=== PATIENT | male | born 1935 | race Caucasian/White ===

== ENCOUNTER 2016-07-23 10:16 | Day surgery (SDC) | payer MEDICARE, BC ==
[2016-07-17 11:05] VITALS: BMI 24.7
[~2016-07-23 10:16] MED LIST: DEXAMETHASONE SOD PHOSPHATE 10 MG/ML 1 ML VIAL IV ONE; FAMOTIDINE 20 MG/2 ML VIAL IV ONE; HYDROmorphone 1 MG/ML 1 ML SYRINGE IVP PRN; LACTATED RINGERS 1,000 ML IV SCH; ONDANSETRON 4 MG/2 ML VIAL IVP ONE; Pre Op ABX Message 1 EACH MISC MISCELLANE ONE
[2016-07-23 11:07] VITALS: RESP 16; TEMP 97.9
[2016-07-23] MEDS ORDERED: LIDOCAINE 1% 20 ML VIAL (10MG/ML) FOR IV START INTRADERMA ONE (11:08)
[2016-07-23] MEDS ORDERED: MIDAZOLAM 2 MG/2 ML VIAL ONE (12:16)
[2016-07-23] MEDS ORDERED: PROPOFOL 10 MG/ML 20 ML VIAL IV ONE (12:16)
[2016-07-23] MEDS ORDERED: LIDOCAINE 1% INJ 10MG/ML (20 ML MDV) ONE (12:16)
[2016-07-23] MEDS ORDERED: KETAMINE 10 MG/ML 20 ML VIAL ONE (12:16)
[2016-07-23] MEDS ORDERED: LIDOCAINE 1%-EPI 1:100,000 20 ML VIAL SQ ONE ×3 (12:33)
[2016-07-23] MEDS ORDERED: BACITRACIN 500 UNIT/GM OINT 28.4 GM TUBE TOPICAL ONE (12:33)
--- NOTE | 2016-07-23 13:58 | P.OP ---
Date of Procedure: 07/23/16 Preoperative Diagnosis: Two left cheek skin lesions Postoperative Diagnosis: Same Procedure(s) Performed: Excision left mid cheek lesion with complex closure 5.7 cm Excision left posterior cheek skin lesion 3.6 x 4.1 cm Local flap reconstruction left posterior cheek defect with primary defect 3.6 x 4.1 cm and secondary defect for 4.3 x 4.5 cm Implants: Anesthesia: MAC Surgeon: Yobani Heath Estimated Blood Loss (ml): 5 Pathology: other (Two left cheek skin lesions) Condition: stable Disposition: PACU Indications for Procedure: This is an 80-year-old white male with 2 progressively enlarging left cheek skin lesions Operative Findings: Two left cheek skin lesions the larger being more posterior and required local flap reconstruction. Description of Procedure: The patient was brought in the operative suite and placed in a supine position. The patient underwent induction of IV sedation after appropriate monitors were placed by the mac operator. The patient was prepped and draped in usual aseptic fashion. 1% lidocaine with 1-100,000 epinephrine was infused subcutaneously and field block fashion at both sites. The more anterior site had excision of the lesion grossly entirely and this was sent for frozen section. This returned as having negative margins and this lesion was able to be converted into a more of an elliptical defect and then was closed in the deep subcutaneous layer with inverted interrupted 5-0 Vicryl suture and the subcutaneous layer with inverted interrupted 5-0 Vicryl suture and the skin layer closed with running locking 5-0 Prolene suture. This was a complex closure. Bacitracin ointment and a sterile dressing were placed The more posterior lesion was excised in grossly entirely down to the subcutaneous fat layer. This was sent for frozen section with negative margins. This left a defect and in the location enough that that this required a local flap reconstruction. A rhomboid flap which was based posteriorly and therefore was rotated and advanced from inferiorly was then developed in the same plane and rotated and advanced into position. The primary and secondary defects were then closed with inverted interrupted 5-0 Vicryl suture and skin closed with running locking and simple interrupted 5-0 Prolene suture. Bacitracin ointment and a sterile dressing were placed. Note that the skin flap had excellent capillary refill and excellent cosmetic closure. The patient was then allowed to emerge from anesthesia having tolerated procedure well was transferred to postop recovery area in satisfactory condition.
[2016-07-23 15:11] VITALS: BP 150/71; PULSE 66
== END 2016-07-23 15:37 | disposition home or self-care (01) ==
LOC: OR 10:16
PROVIDERS: ATTEND Otolaryngology
DX: C44.329 Squamous cell carcinoma of skin of other parts of face (principal); D04.39 Carcinoma in situ of skin of other parts of face; L57.8 Other skin changes due to chronic exposure to nonionizing radiation; H61.20 Impacted cerumen, unspecified ear; H90.5 Unspecified sensorineural hearing loss
CPT/HCPCS: 88305; 88331; 88332; 11646; 13132; 14040; J2250; J1100; J2405; J2001; J2704

== ENCOUNTER → 2021-12-30 | Outpatient (CLI) | payer MEDICARE, BC ==
--- NOTE | 2021-12-30 17:34 | CT ---
EXAMINATION TYPE: CT abdomen pelvis wo con DATE OF EXAM: 12/30/2021 COMPARISON: None HISTORY: diarrhea. CT DLP: 524.80 mGycm Automated exposure control for dose reduction was used. Images obtained from the diaphragm to the floor the pelvis with no contrast. Lung bases are clear of consolidation. No pleural effusion. Heart size is normal. No pericardial effu seble. Liver spleen and stomach pancreas appear intact. There are clips from cholecystectomy. The bile ducts are not dilated. There is no adrenal mass. Kidneys show normal size and contour. No hydronephrosis. There is 3 mm calculus lower pole right kidney. No retroperitoneal adenopathy. Ureters are not dilate d. Abdominal aorta is atheromatous. Bladder distends smoothly. Prostate measures 5 cm. There is a fat -containing left inguinal hernia. No free fluid in the pelvis. There are sigmoid diverticula. No diverticulitis. There is no mesenteric edema. No ascites or free air. No sign of a bowel obstruction. The terminal ileum appears normal. Ap pendix not seen. No sign thickened appendix. The lumbar vertebrae have normal alignment. No compression fracture. There is mild disc space narrowi ng and spur formation. Sacroiliac joints are intact. Acetabula appear intact. The proximal femurs are intact. 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 No acute abnormality in the abdomen and pelvis. Nonobstructing righ t renal calculus. Colonic diverticulosis without diverticulitis.
== END | disposition home or self-care (01) ==
LOC: RADCTMAIN 16:48
PROVIDERS: ATTEND Family Medicine
DX: N20.0 Calculus of kidney (principal); K57.30 Diverticulosis of large intestine without perforation or abscess without bleeding; I73.9 Peripheral vascular disease, unspecified
CPT/HCPCS: 74176

== ENCOUNTER 2022-06-23 19:05 | Emergency (ER) | payer MEDICARE, BC ==
[2022-06-23 19:11] VITALS: BP 142/76; PULSE 88; TEMP 97.7
--- NOTE | 2022-06-23 19:38 | ED ---
Chest Pain HPI - General Chief Complaint: Chest Pain Stated Complaint: Chest Pain Time Seen by Provider: 06/23/22 19:36 Source: family, RN notes reviewed, old records reviewed Mode of arrival: wheelchair Limitations: no limitations - History of Present Illness Initial Comments: This is a 86-year-old male to the emergency department for evaluation patient Jessi for evaluation of left-sided chest pain chest pain 456 days left-sided chest pain or symptoms movement worse with touch left-sided rib tenderness. Patient did make notices chest pain in his doctor's office today where he had follow-up and was sent to ER for further evaluation management of chest pain. MD Complaint: chest pain -: minutes(s) Onset: during rest, during exertion Pain Location: substernal Pain Radiation: none Severity: moderate Severity scale (1-10): 4 Consistency: constant Improves With: nothing Worsens With: nothing Anginal Symptoms: diaphoresis Other Symptoms: palpitations Treatments Prior to Arrival: none - Related Data Home Medications Medication Instructions Recorded Confirmed No Known Home Medications 07/17/16 06/23/22 Allergies Allergy/AdvReac Type Severity Reaction Status Date / Time No Known Allergies Allergy Verified 06/23/22 20:30 Review of Systems ROS Statement: Those systems with pertinent positive or pertinent negative responses have been documented in the HPI. ROS Other: All systems not noted in ROS Statement are negative. Past Medical History Past Medical History: Cancer Additional Past Medical History / Comment(s): skin cancer History of Any Multi-Drug Resistant Organisms: None Reported Past Surgical History: Adenoidectomy, Appendectomy, Cholecystectomy, Tonsillectomy Past Anesthesia/Blood Transfusion Reactions: No Reported Reaction, Motion Sickness Additional Past Anesthesia/Blood Transfusion Reaction / Comment(s): years ago Past Psychological History: No Psychological Hx Reported Smoking Status: Never smoker Past Alcohol Use History: Rare Past Drug Use History: None Reported - Past Family History Mother Family Medical History: No Reported History General Exam Limitations: no limitations General appearance: alert, in no apparent distress Head exam: Present: atraumatic, normocephalic, normal inspection Eye exam: Present: normal appearance, PERRL, EOMI. Absent: scleral icterus, conjunctival injection, periorbital swelling ENT exam: Present: normal exam, mucous membranes moist Neck exam: Present: normal inspection. Absent: tenderness, meningismus, lymphadenopathy Respiratory exam: Present: normal lung sounds bilaterally. Absent: respiratory distress, wheezes, rales, rhonchi, stridor Cardiovascular Exam: Present: regular rate, normal rhythm, normal heart sounds, other (patient has tenderness to left rib cage). Absent: systolic murmur, diastolic murmur, rubs, gallop, clicks GI/Abdominal exam: Present: soft, normal bowel sounds. Absent: distended, tenderness, guarding, rebound, rigid Extremities exam: Present: normal inspection, full ROM, normal capillary refill. Absent: tenderness, pedal edema, joint swelling, calf tenderness Back exam: Present: normal inspection Neurological exam: Present: alert, oriented X3, CN II-XII intact Psychiatric exam: Present: normal affect, normal mood Skin exam: Present: warm, dry, intact, normal color. Absent: rash Course Vital Signs 06/23/22 06/23/22 19:07 21:56 Temperature 97.7 F Pulse Rate 88 Respiratory 20 18 Rate Blood Pressure 142/76 O2 Sat by Pulse 99 98 Oximetry - Reevaluation(s) Reevaluation #1: 06/23/22 19:51 Attic record is reviewed Reevaluation #2: 06/23/22 19:51 Patient symptoms are improved here in the ER patient informed results and questions answered Reevaluation #3: Patient symptoms improved here in the ER Reevaluation #4: 06/23/22 19:51 Was pt. sent in by a medical professional or institution? @ -yes by PCP when mentioning chest pain during visit Did you speak to anyone other than the patient for history? @ -family at bedside Did you review nursing and triage notes? @ -agree Were old charts reviewed? @ -prior ED visits Differential Diagnosis? @ -no EKG interpreted by me (3pts min.)? @ -no X-rays interpreted by me (1pt min.)? @ -yes CT interpreted by me (1pt min.)? @ -no U/S interpreted by me (1pt. min.)? @ -no What testing was considered but not performed? (CT, X-rays, U/S, labs)? Why? @ -no What meds were considered but not given? Why? @ -no Did you discuss the management of the patient with other professionals? @ -no Did you reconcile home meds? @ -no Was smoking cessation discussed for >3mins.? @ -no Was critical care preformed (if so, how long)? @ -no Were there social determinants of health that impacted care today? How? (Homelessness, low income, unemployed, alcoholism, drug addiction, transportation, low edu. Level, literacy, decrease access to med. care, detention, rehab)? @ -no Was there de-escalation of care discussed even if they declined? (Discuss DNR or withdrawal of care, Hospice)? @ -no What co-morbidities impacted this encounter? (DM, HTN, Smoking, COPD, CAD, Cancer, CVA, Hep., AIDS, mental health diagnosis, sleep apnea, morbid obesity)? @ -no Was patient admitted / discharged? @ -dc Undiagnosed new problem with uncertain prognosis? @ -no Drug Therapy requiring intensive monitoring for toxicity (Heparin, Nitro, Insulin, Cardizem)? @ -no Were any procedures done? @ -no Diagnosis/symptom? @ -cp Acute, or Chronic, or Acute on Chronic? @ -acute Uncomplicated (without systemic symptoms) or Complicated (systemic symptoms)? @ -uncomplicated Side effects of treatment? @ -no Exacerbation, Progression, or Severe Exacerbation] @ -[no] Poses a threat to life or bodily function? @ -[no] Reevaluation #5: 06/23/22 19:51 Differential Chest Pain: Stable Angina, Unstable Angina, STEMI, NSTEMI Aortic Dissection, Pneumothorax, Musculoskeletal, Esophageal Spasm GERD, Cholecystitis, Pancreatitis, Zoster, this is not meant to be an all-inclusive list. Chest Pain MDM - MDM 86 male for nonspecific chest pain here in the ER EKG chest x-ray is negative patient does have tenderness over the left side of his chest left ribs, symptoms for 4-5 days now. Improved with Motrin patient can be discharged home Disposition Clinical Impression: Atypical chest pain Disposition: HOME SELF-CARE Condition: Good Instructions (If sedation given, give patient instructions): Chest Pain (ED), Costochondritis (ED) Is patient prescribed a controlled substance at d/c from ED?: No Referrals: Luca Benitez MD [Primary Care Provider] - 1-2 days Time of Disposition: 21:30
[2022-06-23 19:56] LABS: Basophils % (A) 1 %; Eosinophils # (A) 0.1 k/uL (0-0.7); Eosinophils % (A) 1 %; HCT 34.2 % (39.0-53.0); HGB 10.9 gm/dL (13.0-17.5); Lymphocytes # (A) 1.3 k/uL (1.0-4.8); Lymphocytes % (A) 21 %; MCH 31.7 pg (25.0-35.0); MCV 99.1 fL (80.0-100.0); Macrocytosis Slight; Mean Platelet Volume 8.6; Monocytes # (A) 0.5 k/uL (0-1.0); Monocytes % (A) 8 %; Neutrophils # (A) 4.1 k/uL (1.3-7.7); Neutrophils % (A) 68 %; Platelet Count 169 k/uL (150-450); RBC 3.45 m/uL (4.30-5.90); RDW 15.2 % (11.5-15.5)
[2022-06-23 20:14] LABS: Partial Thromboplastin Time 28.5 sec (22.0-30.0); Prothrombin Time 10.5 sec (9.0-12.0)
[2022-06-23 20:34] LABS: Albumin 4.2 g/dL (3.5-5.0); Calcium 8.9 mg/dL (8.4-10.2); Magnesium 2.2 mg/dL (1.6-2.3); Potassium 4.1 mmol/L (3.5-5.1); Total Bilirubin 0.7 mg/dL (0.2-1.3); Total Protein 10.5 g/dL (6.3-8.2)
--- NOTE | 2022-06-23 21:23 | XR ---
EXAMINATION TYPE: XR chest 1V portable DATE OF EXAM: 06/23/2022 COMPARISON: NONE HISTORY: Chest pain. TECHNIQUE: Single frontal view of the chest is obtained. FINDINGS: There is chronic parenchymal change bilaterally thought present with left basilar linear s carring and/or atelectasis. No pleural effusion or pneumothorax seen bilaterally. The cardiac silhoue tte size is within normal limits. The osseous structures are intact. IMPRESSION: Chronic parenchymal changes with left basilar linear scarring and/or atelectasis.
[2022-06-23] MEDS ORDERED: KETOROLAC 15 MG/ML 1 ML VIAL IVP STA (21:44)
[2022-06-23 21:56] VITALS: RESP 18
== END 2022-06-23 21:56 | disposition home or self-care (01) ==
LOC: EC 19:05
DX: R07.89 Other chest pain (principal)
CPT/HCPCS: 36415; 93005; 80053; 83735; 84484; 85025; 85610; 85730; 71045; 99285; 96374; J1885

== ENCOUNTER → 2023-02-06 | Outpatient (CLI) | payer MEDICARE, BC ==
--- NOTE | 2023-02-09 08:35 | PE ---
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 Images are reviewed on the computer in the coronal, a xial, and sagittal planes. Reconstructed rotating images are created on independent workstation and reviewed on the computer. A localization and attenuation correction CT is performed in conjunction with the PET scan. DLP: 747.41 mGycm SCAN: Initial Blood glucose: 110 mg/dL Average Mediastinum SUV: 2 Average Liver SUV: 2.49 FINDINGS: Head and neck: No suspicious uptake in the right temporal region is evident. There is some mild uptak e adjacent to the anterior left mandible. Correlate for periodontal disease NECK: There may be some mild increased uptake within the left submandibular gland. Mild increased up take may be within the right thyroid gland. THORAX: Mildly heterogenous appearance. Suspicious focal uptake not identified within the thorax. ABDOMEN: Appears to be some contamination external to the right midabdomen. PELVIS: No suspicious focal uptake. There are some scattered uptake within the bowel which can be phy siologic. OSSEOUS STRUCTURES: There is a focus of radiotracer accumulation within the anterior lateral right fo urth upper rib, image 70, SUV 3.01. There is heterogenous scattered areas of increased signal within this sacrum and within the medial iliac wings. Some increased signal may be above the acetabulum. Met astatic disease is not excluded. There is increased signal within the proximal left femoral diaphysis , image 236. Additional uptake is more superior. LOCALIZATION CT: Note is made of coronary artery calcification. There is a left inguinal hernia conta ining a loop of colon. Multiple diverticula are present without acute diverticulitis. COMPARISON: Inguinal hernia appears been interval change. Diverticulosis is present. IMPRESSION: 1. Focal areas of suspicious uptake within anterolateral right fourth rib and left diaphyseal femur. Additional scattered areas of uptake are within the pelvis and sacrum. Findings are suspicious for me tastatic disease. 2. No clear obvious area of uptake to suggest primary neoplasm. There are multiple heterogenous nonsp ecific areas scattered throughout the study discussed above. 3. No suspicious uptake in the right temporal region of the patient's primary location.
== END | disposition home or self-care (01) ==
LOC: RADPETMAIN 13:09
PROVIDERS: ATTEND Radiology Radiation Oncology
DX: C44.329 Squamous cell carcinoma of skin of other parts of face (principal); C77.0 Secondary and unspecified malignant neoplasm of lymph nodes of head, face and neck; C44.320 Squamous cell carcinoma of skin of unspecified parts of face; R93.5 Abnormal findings on diagnostic imaging of other abdominal regions, including retroperitoneum
CPT/HCPCS: 78815; A9552

== ENCOUNTER 2024-02-21 13:01 | Inpatient (IN) | payer MEDICARE, BC ==
--- NOTE | 2024-02-21 13:18 | ED ---
General Adult HPI - General Chief complaint: Syncope Stated complaint: Weakness Time Seen by Provider: 02/21/24 13:06 Source: patient, EMS Mode of arrival: EMS Limitations: no limitations - History of Present Illness Initial comments: 88-year-old male with no reported past medical history who presents the emergency department after syncope versus stroke like activity. Patient has been having a cough and some shortness of breath. He went into an urgent care with his nephew. The nephew states that the patient was doing well upon check- in however when they were in the exam room the patient had an episode where he went unresponsive. He states that his eyes were open however the patient seemed disconnected. His speech did not make sense. EMS was called. Last known well was at noon. upon arrival patient appears to have expressive aphasia. He does not follow commands appropriately. He is extremely hard of hearing. Nephew does arrive to the hospital and states that he does appear more confused with more fluency issues. No history of stroke. Patient does not take any prescribed medications. No weakness in his arms or legs. No other alleviating, precipitating modifying factors - Related Data Home Medications Medication Instructions Recorded Confirmed Cyanocobalamin (Vitamin B-12) 500 mcg PO DAILY@0800 02/21/24 02/21/24 [Vitamin B-12] Ergocalciferol (Vitamin D2) 1,250 mcg PO MO@0800 02/21/24 02/21/24 [Drisdol (50,000 Iu)] Ferrous Sulfate [Feosol] 325 mg PO DAILY@0800 02/21/24 02/21/24 Multivitamins, Thera [Multivitamin 1 tab PO DAILY@0800 02/21/24 02/21/24 (formulary)] Allergies Allergy/AdvReac Type Severity Reaction Status Date / Time No Known Allergies Allergy Verified 02/21/24 15:09 Review of Systems ROS Statement: Those systems with pertinent positive or pertinent negative responses have been documented in the HPI. ROS Other: All systems not noted in ROS Statement are negative. Past Medical History Past Medical History: Cancer Additional Past Medical History / Comment(s): skin cancer History of Any Multi-Drug Resistant Organisms: None Reported Past Surgical History: Adenoidectomy, Appendectomy, Cholecystectomy, To nsillectomy Past Anesthesia/Blood Transfusion Reactions: No Reported Reaction, Motion Sickness Additional Past Anesthesia/Blood Transfusion Reaction / Comment(s): years ago Past Psychological History: No Psychological Hx Reported Smoking Status: Never smoker Past Alcohol Use History: Rare Past Drug Use History: None Reported - Past Family History Mother Family Medical History: No Reported History General Exam Limitations: altered mental status, physical limitation General appearance: alert, in no apparent distress Head exam: Present: atraumatic, normocephalic, normal inspection Eye exam: Present: normal appearance, PERRL, EOMI. Absent: scleral icterus, conjunctival injection, periorbital swelling ENT exam: Present: normal exam, mucous membranes dry Neck exam: Present: normal inspection. Absent: tenderness, meningismus, lymphadenopathy Respiratory exam: Present: normal lung sounds bilaterally. Absent: respiratory distress, wheezes, rales, rhonchi, stridor Cardiovascular Exam: Present: regular rate, normal rhythm, normal heart sounds. Absent: systolic murmur, diastolic murmur, rubs, gallop, clicks GI/Abdominal exam: Present: soft, normal bowel sounds. Absent: distended, tenderness, guarding, rebound, rigid Extremities exam: Present: normal inspection, full ROM, normal capillary refill. Absent: tenderness, pedal edema, joint swelling, calf tenderness Neurological exam: Present: alert, other (Patient has some expressive aphasia upon arrival. There is also some dysarthria) Psychiatric exam: Present: normal affect, normal mood Skin exam: Present: warm, dry, intact, normal color. Absent: rash Course Vital Signs 02/21/24 02/21/24 02/21/24 13:01 15:00 16:00 Temperature 97.3 F L Pulse Rate 64 61 61 Respiratory 18 18 18 Rate Blood Pressure 117/73 123/78 123/68 O2 Sat by Pulse 100 99 99 Oximetry 02/21/24 02/21/24 02/21/24 18:07 19:00 20:00 Temperature Pulse Rate 77 66 77 Respiratory 20 18 20 Rate Blood Pressure 106/82 109/65 112/66 O2 Sat by Pulse 95 97 93 L Oximetry 02/21/24 20:45 Temperature 98.4 F Pulse Rate 69 Respiratory 18 Rate Blood Pressure 110/62 O2 Sat by Pulse 95 Oximetry Medical Decision Making - Medical Decision Making Was pt. sent in by a medical professional or institution (, PA, OCCUPATIONAL THER, urgent care, hospital, or jail...) When possible be specific @ -Patient sent in from urgent care Did you speak to anyone other than the patient for history (EMS, parent, family, police, friend...)? What history was obtained from this source @ -Spoke with the nephew for history Did you review nursing and triage notes (agree or disagree)? Why? @ -I reviewed and agree with nursing and triage notes Were old charts reviewed (outside hosp., previous admission, EMS record, old EKG, old radiological studies, urgent care reports/EKG's, jail records)? Report findings @ -No old charts were reviewed Differential Diagnosis (chest pain, altered mental status, abdominal pain women, abdominal pain men, vaginal bleeding, weakness, fever, dyspnea, syncope, headache, dizziness, GI bleed, back pain, seizure, CVA, palpatations, mental health, musculoskeletal)? @ -Differential CVA Ischemic stroke, hemorrhagic stroke, brain tumor, atypical migraine, Wernicke's encephalopathy, seizure, multiple sclerosis, meningitis, encephalitis, hypoglycemia, Guillain-Snow, electrolytes disturbance, myasthenia gravis.... This is not meant to be an all-inclusive list EKG interpreted by me (3pts min.). @ -Yes and demonstrates sinus rhythm with a rate of 69. [place] interval 139. QRS 118. QTc of 450. No acute ST segment elevations or depressions X-rays interpreted by me (1pt min.). @ -Yes which demonstrates no acute findings CT interpreted by me (1pt min.). @ -Yes which demonstrates no acute findings U/S interpreted by me (1pt. min.). @ -None done What testing was considered but not performed or refused? (CT, X-rays, U/S, l abs)? Why? @ -None What meds were considered but not given or refused? Why? @ -TNKase was considered however I did discuss the risks and benefits with family. Patient family does not want to pursue this medication due to high risk of bleeding or Did you discuss the management of the patient with other professionals (professionals i.e. , PA, OCCUPATIONAL THER, lab, RT, psych nurse, social work lecturer, tumbling and rolling supervisor, teacher, light armored reconnaissance officer, casework supervisor)? Give summary @ -Discussed the case with Dr. Rocha Was smoking cessation discussed for >3mins.? @ -No Was critical care preformed (if so, how long)? @ -Yes, 35 minutes for code stroke activation Were there social determinants of health that impacted care today? How? (Homelessness, low income, unemployed, alcoholism, drug addiction, transportation, low edu. Level, literacy, decrease access to med. care, fci, rehab)? @ -No Was there de-escalation of care discussed even if they declined (Discuss DNR or withdrawal of care, Hospice)? DNR status @ -Yes, family would like the patient to be a DNR What co-morbidities impacted this encounter? (DM, HTN, Smoking, COPD, CAD, Cancer, CVA, ARF, Chemo, Hep., AIDS, mental health diagnosis, sleep apnea, mo rbid obesity)? @ -None Was patient admitted / discharged? Hospital course, mention meds given and r oute, prescriptions, significant lab abnormalities, going to OR and other pertinent info. @ -Upon arrival patient seen and evaluated in bed 26. Thorough history and physical exam was performed. Patient arrives with some expressive aphasia and dysarthria. I did speak with the family about this and they states that this is new for the patient. Code stroke was activated. NIH is 4. Patient does go for CT and CTA. Upon return from CAT scan the patient does have more fluent speech. He is able to answer questions appropriately and follow commands at this time. NIH is now one. I did speak with Dr. Rocha. tnkase risks and benefits are discussed with family who do not want this drug due to high risks of bleeding and . I did recommend admission for further stroke evaluation for which they were agreeable. I spoke with Dr. Chow for admission Undiagnosed new problem with uncertain prognosis? @ -yes Drug Therapy requiring intensive monitoring for toxicity (Heparin, Nitro, Insulin, Cardizem)? @ -No Were any procedures done? @ -No Diagnosis/symptom? @ -Acute encephalopathy, acute expressive aphasia, suspected CVA Acute, or Chronic, or Acute on Chronic? @ -Acute Uncomplicated (without systemic symptoms) or Complicated (systemic symptoms)? @ -Complicated Side effects of treatment? @ -No Exacerbation, Progression, or Severe Exacerbation? @ -No Poses a threat to life or bodily function? How? (Chest pain, [place], [place], pneumonia, PE, COPD, DKA, ARF, appy, cholecystitis, CVA, Diverticulitis, Homicidal, Suicidal, threat to staff... and all critical care pts) @ -Yes as patient presents with strokelike activity - Lab Data Result diagrams: 02/21/24 13:39 02/21/24 13:39 Lab Results 02/21/24 02/21/24 02/21/24 Range/Units 13:37 13:39 13:39 WBC 5.9 (3.8-10.6) k/uL RBC 2.60 L (4.30-5.90) m/uL Hgb 8.8 L (13.0-17.5) gm/dL Hct 25.8 L (39.0-53.0) % MCV 99.2 (80.0-100.0) fL MCH 33.7 (25.0-35.0) pg MCHC 33.9 (31.0-37.0) g/dL RDW 15.3 (11.5-15.5) % Plt Count 182 (150-450) k/uL MPV 8.9 Neutrophils % 73 % Lymphocytes % 12 % Monocytes % 12 % Eosinophils % 1 % Basophils % 0 % Neutrophils # 4.3 (1.3-7.7) k/uL Lymphocytes # 0.7 L (1.0-4.8) k/uL Monocytes # 0.7 (0-1.0) k/uL Eosinophils # 0.1 (0-0.7) k/uL Basophils # 0.0 (0-0.2) k/uL Macrocytosis Slight PT 11.9 (10.0-12.5) sec INR 1.1 (<1.2) APTT 26.6 (22.0-30.0) sec Sodium (137-145) mmol/L Potassium (3.5-5.1) mmol/L Chloride (98-107) mmol/L Carbon Dioxide (22-30) mmol/L Anion Gap mmol/L BUN (9-20) mg/dL Creatinine (0.66-1.25) mg/dL Est GFR (CKD-EPI)AfAm (>60 ml/min/1.73 sqM) Est GFR (CKD-EPI)NonAf (>60 ml/min/1.73 sqM) Glucose (74-99) mg/dL POC Glucose (mg/dL) 153 H (70-110) mg/dL POC Glu Bank Manager ID Nasir Willard [address]imated [address] Glu mg/dL mg/dL Hemoglobin A1c (<=6.0) % Calcium (8.4-10.2) mg/dL Magnesium (1.6-2.3) mg/dL Total Bilirubin (0.2-1.3) mg/dL AST (17-59) U/L ALT (4-49) U/L Alkaline Phosphatase (38-126) U/L Troponin I (0.000-0.034) ng/mL Total Protein (6.3-8.2) g/dL Albumin (3.5-5.0) g/dL Triglycerides (0.00-149.00) mg/dL Cholesterol (0.00-200.00) mg/dL LDL Cholesterol, Calc (0.0-131.0) mg/dL VLDL Cholesterol, Calc (5.00-40.00) mg/dL HDL Cholesterol (40.00-60.00) mg/dL Cholesterol/HDL Ratio Ratio TSH (0.465-4.680) mIU/L Free T4 (0.78-2.19) ng/dL Urine Color Urine Appearance (Clear) Urine pH (5.0-8.0) Ur Specific [place] (1.001-1.035) Urine Protein (Negative) Urine Glucose (UA) (Negative) Urine Ketones (Negative) Urine Blood (Negative) Urine Nitrite (Negative) Urine Bilirubin (Negative) Urine Urobilinogen (<2.0) mg/dL Ur Leukocyte Esterase (Negative) Influenza Type A (PCR) (Not Detectd) Influenza Type B (PCR) (Not Detectd) RSV (PCR) (Not Detectd) SARS-CoV-2 (PCR) (Not Detectd) 02/21/24 02/21/24 02/21/24 Range/Units 13:39 13:39 13:41 WBC (3.8-10.6) k/uL RBC (4.30-5.90) m/uL Hgb (13.0-17.5) gm/dL Hct (39.0-53.0) % MCV (80.0-100.0) fL MCH (25.0-35.0) pg MCHC (31.0-37.0) g/dL RDW (11.5-15.5) % Plt Count (150-450) k/uL MPV Neutrophils % % Lymphocytes % % Monocytes % % Eosinophils % % Basophils % % Neutrophils # (1.3-7.7) k/uL Lymphocytes # (1.0-4.8) k/uL Monocytes # (0-1.0) k/uL Eosinophils # (0-0.7) k/uL Basophils # (0-0.2) k/uL Macrocytosis PT (10.0-12.5) sec INR (<1.2) APTT (22.0-30.0) sec Sodium 134 L (137-145) mmol/L Potassium 4.9 (3.5-5.1) mmol/L Chloride 101 (98-107) mmol/L Carbon Dioxide 22 (22-30) mmol/L Anion Gap 11 mmol/L BUN 25 H (9-20) mg/dL Creatinine 1.18 (0.66-1.25) mg/dL Est GFR (CKD-EPI)AfAm 63 (>60 ml/min/1.73 sqM) Est GFR (CKD-EPI)NonAf 55 (>60 ml/min/1.73 sqM) Glucose 139 H (74-99) mg/dL POC Glucose (mg/dL) (70-110) mg/dL POC Glu Bank Manager ID Estimated Ave Glu mg/dL mg/dL Hemoglobin A1c (<=6.0) % Calcium 8.8 (8.4-10.2) mg/dL Magnesium 2.1 (1.6-2.3) mg/dL Total Bilirubin 1.0 (0.2-1.3) mg/dL AST 33 (17-59) U/L ALT 12 (4-49) U/L Alkaline Phosphatase 61 (38-126) U/L Troponin I <0.012 (0.000-0.034) ng/mL Total Protein 10.5 H (6.3-8.2) g/dL Albumin 4.1 (3.5-5.0) g/dL Triglycerides (0.00-149.00) mg/dL Cholesterol (0.00-200.00) mg/dL LDL Cholesterol, Calc (0.0-131.0) mg/dL VLDL Cholesterol, Calc (5.00-40.00) mg/dL HDL Cholesterol (40.00-60.00) mg/dL Cholesterol/HDL Ratio Ratio TSH (0.465-4.680) mIU/L Free T4 (0.78-2.19) ng/dL Urine Color Urine Appearance (Clear) Urine pH (5.0-8.0) Ur Specific [place] (1.001-1.035) Urine Protein (Negative) Urine Glucose (UA) (Negative) Urine Ketones (Negative) Urine Blood (Negative) Urine Nitrite (Negative) Urine Bilirubin (Negative) Urine Urobilinogen (<2.0) mg/dL Ur Leukocyte Esterase (Negative) Influenza Type A (PCR) Not Detected (Not Detectd) Influenza Type B (PCR) Not Detected (Not Detectd) RSV (PCR) Not Detected (Not Detectd) SARS-CoV-2 (PCR) Not Detected (Not Detectd) 02/21/24 02/22/24 02/22/24 Range/Units 16:28 05:41 05:41 WBC (3.8-10.6) k/uL RBC (4.30-5.90) m/uL Hgb (13.0-17.5) gm/dL Hct (39.0-53.0) % MCV (80.0-100.0) fL MCH (25.0-35.0) pg MCHC (31.0-37.0) g/dL RDW (11.5-15.5) % Plt Count (150-450) k/uL MPV Neutrophils % % Lymphocytes % % Monocytes % % Eosinophils % % Basophils % % Neutrophils # (1.3-7.7) k/uL Lymphocytes # (1.0-4.8) k/uL Monocytes # (0-1.0) k/uL Eosinophils # (0-0.7) k/uL Basophils # (0-0.2) k/uL Macrocytosis PT (10.0-12.5) sec INR (<1.2) APTT (22.0-30.0) sec Sodium (137-145) mmol/L Potassium (3.5-5.1) mmol/L Chloride (98-107) mmol/L Carbon Dioxide (22-30) mmol/L Anion Gap mmol/L BUN (9-20) mg/dL Creatinine (0.66-1.25) mg/dL Est GFR (CKD-EPI)AfAm (>60 ml/min/1.73 sqM) Est GFR (CKD-EPI)NonAf (>60 ml/min/1.73 sqM) Glucose (74-99) mg/dL POC Glucose (mg/dL) (70-110) mg/dL POC Glu Bank Manager ID Estimated Ave Glu mg/dL 131 mg/dL Hemoglobin A1c 6.2 H (<=6.0) % Calcium (8.4-10.2) mg/dL Magnesium (1.6-2.3) mg/dL Total Bilirubin (0.2-1.3) mg/dL AST (17-59) U/L ALT (4-49) U/L Alkaline Phosphatase (38-126) U/L Troponin I (0.000-0.034) ng/mL Total Protein (6.3-8.2) g/dL Albumin (3.5-5.0) g/dL Triglycerides 39.40 (0.00-149.00) mg/dL Cholesterol 68.00 (0.00-200.00) mg/dL LDL Cholesterol, Calc 22.1 (0.0-131.0) mg/dL VLDL Cholesterol, Calc 7.88 (5.00-40.00) mg/dL HDL Cholesterol 38.00 L (40.00-60.00) mg/dL Cholesterol/HDL Ratio 1.79 Ratio TSH (0.465-4.680) mIU/L Free T4 (0.78-2.19) ng/dL Urine Color Light Yellow Urine Appearance Clear (Clear) Urine pH 6.5 (5.0-8.0) Ur Specific [place] 1.049 H (1.001-1.035) Urine Protein Trace H (Negative) Urine Glucose (UA) Negative (Negative) Urine Ketones Negative (Negative) Urine Blood Negative (Negative) Urine Nitrite Negative (Negative) Urine Bilirubin Negative (Negative) Urine Urobilinogen <2.0 (<2.0) mg/dL Ur Leukocyte Esterase Negative (Negative) Influenza Type A (PCR) (Not Detectd) Influenza Type B (PCR) (Not Detectd) RSV (PCR) (Not Detectd) SARS-CoV-2 (PCR) (Not Detectd) 02/22/24 Range/Units 05:41 WBC (3.8-10.6) k/uL RBC (4.30-5.90) m/uL Hgb (13.0-17.5) gm/dL Hct (39.0-53.0) % MCV (80.0-100.0) fL MCH (25.0-35.0) pg MCHC (31.0-37.0) g/dL RDW (11.5-15.5) % Plt Count (150-450) k/uL MPV Neutrophils % % Lymphocytes % % Monocytes % % Eosinophils % % Basophils % % Neutrophils # (1.3-7.7) k/uL Lymphocytes # (1.0-4.8) k/uL Monocytes # (0-1.0) k/uL Eosinophils # (0-0.7) k/uL Basophils # (0-0.2) k/uL Macrocytosis PT (10.0-12.5) sec INR (<1.2) APTT (22.0-30.0) sec Sodium (137-145) mmol/L Potassium (3.5-5.1) mmol/L Chloride (98-107) mmol/L Carbon Dioxide (22-30) mmol/L Anion Gap mmol/L BUN (9-20) mg/dL Creatinine (0.66-1.25) mg/dL Est GFR (CKD-EPI)AfAm (>60 ml/min/1.73 sqM) Est GFR (CKD-EPI)NonAf (>60 ml/min/1.73 sqM) Glucose (74-99) mg/dL POC Glucose (mg/dL) (70-110) mg/dL POC Glu Bank Manager ID Estimated Ave Glu mg/dL mg/dL Hemoglobin A1c (<=6.0) % Calcium (8.4-10.2) mg/dL Magnesium (1.6-2.3) mg/dL Total Bilirubin (0.2-1.3) mg/dL AST (17-59) U/L ALT (4-49) U/L Alkaline Phosphatase (38-126) U/L Troponin I (0.000-0.034) ng/mL Total Protein (6.3-8.2) g/dL Albumin (3.5-5.0) g/dL Triglycerides (0.00-149.00) mg/dL Cholesterol (0.00-200.00) mg/dL LDL Cholesterol, Calc (0.0-131.0) mg/dL VLDL Cholesterol, Calc (5.00-40.00) mg/dL HDL Cholesterol (40.00-60.00) mg/dL Cholesterol/HDL Ratio Ratio TSH 18.500 H (0.465-4.680) mIU/L Free T4 0.87 (0.78-2.19) ng/dL Urine Color Urine Appearance (Clear) Urine pH (5.0-8.0) Ur Specific [place] (1.001-1.035) Urine Protein (Negative) Urine Glucose (UA) (Negative) Urine Ketones (Negative) Urine Blood (Negative) Urine Nitrite (Negative) Urine Bilirubin (Negative) Urine Urobilinogen (<2.0) mg/dL Ur Leukocyte Esterase (Negative) Influenza Type A (PCR) (Not Detectd) Influenza Type B (PCR) (Not Detectd) RSV (PCR) (Not Detectd) SARS-CoV-2 (PCR) (Not Detectd) Disposition Clinical Impression: TIA (transient ischemic attack), Expressive aphasia, Encephalopathy acute Disposition: ADMITTED IP TO THIS [facility] Condition: Stable Is patient prescribed a controlled substance at d/c from ED?: No Time of Disposition: 16:07 Decision to Admit Reason: Admit from EC Decision Date: 02/21/24 Decision Time: 16:07
[2024-02-21 13:39] LABS: Glucose,Whole Blood 153 mg/dL (70-110)
[2024-02-21 13:45] LABS: Basophils % (A) 0 %; Eosinophils # (A) 0.1 k/uL (0-0.7); Eosinophils % (A) 1 %; HCT 25.8 % (39.0-53.0); HGB 8.8 gm/dL (13.0-17.5); Lymphocytes # (A) 0.7 k/uL (1.0-4.8); Lymphocytes % (A) 12 %; MCH 33.7 pg (25.0-35.0); MCHC 33.9 g/dL (31.0-37.0); MCV 99.2 fL (80.0-100.0); Macrocytosis Slight; Mean Platelet Volume 8.9; Monocytes # (A) 0.7 k/uL (0-1.0); Monocytes % (A) 12 %; Neutrophils # (A) 4.3 k/uL (1.3-7.7); Neutrophils % (A) 73 %; Platelet Count 182 k/uL (150-450); RDW 15.3 % (11.5-15.5); WBC 5.9 k/uL (3.8-10.6)
[2024-02-21 14:02] LABS: INR 1.1 (<1.2); Partial Thromboplastin Time 26.6 sec (22.0-30.0); Prothrombin Time 11.9 sec (10.0-12.5)
[2024-02-21 14:05] LABS: ALT 12 U/L (4-49); African American GFR (CKD) 63 (>60 ml/min/1.73 sqM); Albumin 4.1 g/dL (3.5-5.0); Anion Gap 11 mmol/L; Blood Urea Nitrogen 25 mg/dL (9-20); Calcium 8.8 mg/dL (8.4-10.2); Carbon Dioxide 22 mmol/L (22-30); Chloride 101 mmol/L (98-107); Glucose 139 mg/dL (74-99); Non-African American GFR(CKD) 55 (>60 ml/min/1.73 sqM); Sodium 134 mmol/L (137-145)
--- NOTE | 2024-02-21 14:10 | CT ---
EXAMINATION TYPE: CODE STROKE: CT brain wo contr DATE OF EXAM: 02/21/2024 2:00 PM COMPARISON: None. CLINICAL INDICATION: Male, 88 years old with history of Neuro deficit, acute, stroke suspected, code thromb. weakness and confusion TECHNIQUE: Brain: Axial CT images of the brain were obtained with coronal and sagittal reformats created and rev iewed. Contrast used: None. Oral contrast used: None. CT DLP: 1202.6 mGycm, Automated exposure control for dose reduction was used. FINDINGS: Brain: Extra-axial spaces: No abnormal extra-axial fluid collections. Ventricular system: Dilatation in proportion to cerebral atrophy. Cerebral parenchyma: Cerebral atrophy. No acute intraparenchymal hemorrhage or mass effect. The bull -white junction is well differentiated. Scattered hypoattenuating areas are seen within the white mat ter. Cerebellum: Unremarkable. Mass effect: No evidence of midline shift. Intracranial vasculature: Atherosclerotic calcifications of the intracranial vessels. Soft tissues: Normal. Calvarium/osseous structures: No depressed skull fracture. Paranasal sinuses and mastoid air cells: Mild scattered paranasal sinus disease. Visualized orbits: Orbital contents are intact. IMPRESSION: 1. No acute intracranial process. 2. Nonspecific white matter changes, likely secondary to chronic small vessel ischemic disease. [facility], , 02/21/2024 2:08 PM
[2024-02-21 14:12] LABS: Total Protein 10.5 g/dL (6.3-8.2)
[2024-02-21 14:18] LABS: AST 33 U/L (17-59); Alkaline Phosphatase 61 U/L (38-126); Magnesium 2.1 mg/dL (1.6-2.3); Potassium 4.9 mmol/L (3.5-5.1)
--- NOTE | 2024-02-21 14:49 | CT ---
EXAMINATION TYPE: CT angio head neck DATE OF EXAM: 02/21/2024 2:12 PM COMPARISON: . CLINICAL INDICATION: Male, 88 years old with history of Neuro deficit, acute, stroke suspected; PHH, code thromb. weakness and confusion TECHNIQUE: Axially acquired helical CT angiogram of the head and neck was obtained with contrast. Axi al images are supplemented with 3D reconstructions and MIP images which were post-processed at an in dependent workstation. NASCET criteria used. Contrast used:65ml mL of Isovue 370 with IV Contrast, Oral contrast used: None. CT DLP: 451.4 mGycm, Automated exposure control for dose reduction was used. FINDINGS: CTA HEAD: No evidence of acute intracranial hemorrhage, mass effect, or midline shift. The ventricles, sulci, a nd cisterns are unremarkable. Vertebral arteries: The vertebral arteries are patent. Vertebral artery dominance: Codominant Basilar artery: The basilar artery is intact. The basilar artery bifurcation is normal. Internal Carotid arteries: The cervical, petrous, cavernous and supraclinoid segments are normal. MEMO: Patent with no evidence of aneurysm. ACOM: Present without evidence of aneurysm. MCA: Patent with no evidence of aneurysm. FIELD CLERK: origin left, Patent with no evidence of aneurysm. PCOM: origin left hypoplastic right. Dural sinuses: Patent. CTA NECK: Right Carotid System: The common carotid and external carotid arteries are patent. There is less than 25% stenosis at the c arotid bifurcation secondary to calcified/noncalcified plaque. The rest of the internal carotid arter y is patent. Left Carotid System: The common carotid and external carotid arteries are patent. There is less than 25% stenosis at the c arotid bifurcation secondary to calcified/noncalcified plaque. The rest of the internal carotid arter y is patent. Vertebral arteries are patent without evidence hemodynamically significant stenosis. There is a three-vessel aortic arch. The origins of the great vessels are patent. No evidence of hemo dynamically significant stenosis. Paranasal sinus disease with mucosal thickening of the ethmoid air cells, frontal sinuses, maxillary sinuses and sphenoid sinuses. IMPRESSION: 1. No evidence of dissection of the cervical internal carotid arteries or vertebral arteries. 2. No any evidence of significant stenosis at the carotid bifurcations. 3. No evidence of intracranial high-grade stenosis or intracranial aneurysm. 4. Moderate paranasal sinus disease. [facility], , 02/21/2024 2:46 PM
--- NOTE | 2024-02-21 15:26 | XR ---
EXAMINATION TYPE: XR chest 2V DATE OF EXAM: 02/21/2024 3:15 PM COMPARISON: Chest radiographs from 06/23/2022 CLINICAL INDICATION: Male, 88 years old with history of syncope; [facility] TECHNIQUE: XR chest 2V Frontal and lateral views of the chest. FINDINGS: Lungs/Pleura: There is no evidence of pleural effusion, focal consolidation, or pneumothorax. Pulmonary vascularity: Pulmonary vascular congestion. Heart/mediastinum: Cardiomediastinal silhouette is enlarged and stable. Musculoskeletal: No acute osseous pathology. IMPRESSION: Cardiomegaly and mild pulmonary vascular congestion. Correlate with BNP for congestive heart failure. [facility], , 02/21/2024 3:24 PM
[2024-02-21] MEDS ORDERED: DOCUSATE 100 MG CAP PO PRN (16:02)
[2024-02-21] MEDS ORDERED: NALOXONE 0.4 MG/ML 1 ML VIAL IV PRN (16:02)
[2024-02-21] MEDS ORDERED: MELATONIN 3 MG TABLET PO PRN (16:02)
[2024-02-21] MEDS ORDERED: ONDANSETRON 4 MG/2 ML VIAL IVP PRN (16:02)
[2024-02-21] MEDS ORDERED: ACETAMINOPHEN TAB 325 MG TAB PO PRN (16:02)
[2024-02-21] MEDS ORDERED: CALCIUM CARBONATE 500 MG CHEWABLE PO PRN (16:02)
[2024-02-21 16:38] LABS: Appearance,Urine Clear (Clear); Bilirubin,Urine Negative (Negative); Blood,Urine Negative (Negative); Color,Urine Light Yellow; Glucose,Urine (UA) Negative (Negative); Ketones,Urine Negative (Negative); Leukocyte Esterase,Urine Negative (Negative); Nitrite,Urine Negative (Negative); PH, Urine 6.5 (5.0-8.0); Protein,Urine Trace (Negative); Urobilinogen,Urine <2.0 mg/dL (<2.0)
[2024-02-21 16:41] LABS: Specific Gravity,Urine 1.049 (1.001-1.035)
[2024-02-21] MEDS: ASPIRIN 325 MG TAB PO STA (16:43)
[2024-02-21] MEDS: ATORVASTATIN 40 MG TAB PO SCH (16:44)
--- NOTE | 2024-02-21 17:19 | P.HPIM ---
History of Present Illness H&P Date: 02/21/24 88 year old M with PMH of vitamin B12 def, vitamin D def, anemia presents to the ED. History is obtained from the nephew Olvin who is also the medical POA. Patient lives at [facility] which is an assisted living facility. He was complaining of a cough and was taken to urgent care for further evaluation. POA reports patient was sitting for approximately 10 minutes when he was suddenly disoriented. He was confused and couldn't recognize the nephew. Patient couldn't speak, and when he tried he was incoherently mumbling. He was starting around the room unable to follow commands. Symptoms have significantly improved since coming to the ED. In the ED he underwent extensive evaluation. BP 117/73, HR 64, T 97.3F, RR 18, 100% on RA. CBC, Coag panel, CMP significant for RBC 2.6, Hg 8.8, Hct 25.8, Na 134, BUN 25, glu 139. Mag 2.1. Trop < 0.012. UA neg LE or nitrite. COVID, RSV, Flu neg. Brain CT neg for acute process. CTA head no acute process, paranasal sinus disease. CXR cardiomegaly with pulmonary vascular congestion. Patient is admitted for further workup and management. General: No acute distress Derm: warm, dry Head: atraumatic, normocephalic, symmetric Eyes: EOMI, no lid lag, anicteric sclera Mouth: no lip lesion, mucus membranes moist Cardiovascular: S1S2 reg, no murmur Lungs: CTA bilateral, no rhonchi, no rales , no accessory muscle use Ext: no gross muscle atrophy, no edema, no contractures Neuro: No focal neurologic deficits, CN II-XII grossly intact except diminished hearing bilaterally Psych: Alert and oriented Based on my assessment of this patient, this patient meets a high complexity level of care. Confusion, expressive aphasia: Concerns for TIA. Obtain MRI brain, Echo, A1c, Lipid panel. ASA 325 mg PO QD. Lipitor 40 mg PO QD. Neurochecks. Telemetry monitoring. Check TSH, B12, Folate. Neurology consult. PT/OT/ST consulted. 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 Obtain iron studies. 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 Vitamin B12 def: Cyanocobalamin 500 mcg PO QD. Vitamin D def: Vit D2 1250 mcg PO QMo. CODE STATUS: NO CODE DVT Prophylaxis: Heparin SQ GI Prophylaxis: Designated medical POA if patient is not able to make medical decisions for themselves: Olvin, nephew and medical POA I have reviewed the following search engine optimization consultant notes: ED note. I have reviewed the results of the following tests: As above. I have ordered the following tests: As above. I have discussed the care of this patient with the following independent historian: POA and daughter in law. I have independently interpreted the following test below: I have discussed the management of this patient with the following physician: Dr. Vaughan Past Medical History Past Medical History: Cancer Additional Past Medical History / Comment(s): skin cancer History of Any Multi-Drug Resistant Organisms: None Reported Past Surgical History: Adenoidectomy, Appendectomy, Cholecystectomy, Tonsillectomy Past Anesthesia/Blood Transfusion Reactions: No Reported Reaction, Motion Sickness Additional Past Anesthesia/Blood Transfusion Reaction / Comment(s): years ago Past Psychological History: No Psychological Hx Reported Smoking Status: Never smoker Past Alcohol Use History: Rare Past Drug Use History: None Reported - Past Family History Mother Family Medical History: No Reported History Medications and Allergies Home Medications Medication Instructions Recorded Confirmed Type Cyanocobalamin (Vitamin B-12) 500 mcg PO DAILY@0800 02/21/24 02/21/24 History [Vitamin B-12] Ergocalciferol (Vitamin D2) 1,250 mcg PO MO@0800 02/21/24 02/21/24 History [Drisdol (50,000 Iu)] Ferrous Sulfate [Feosol] 325 mg PO DAILY@0800 02/21/24 02/21/24 History Multivitamins, Thera [Multivitamin 1 tab PO DAILY@0800 02/21/24 02/21/24 History (formulary)] Allergies Allergy/AdvReac Type Severity Reaction Status Date / Time No Known Allergies Allergy Verified 02/21/24 15:09 Physical Exam Vitals: Vital Signs Temp Pulse Resp BP Pulse Ox 02/21/24 16:00 61 18 123/68 99 02/21/24 15:00 61 18 123/78 99 02/21/24 13:01 97.3 F L 64 18 117/73 100 Intake and Output 02/21/24 02/21/24 02/21/24 06:59 14:59 22:59 Other: Weight 73.028 kg Results CBC & Chem 7: 02/21/24 13:39 02/21/24 13:39 Labs: Abnormal Lab Results - Last 24 Hours (Table) 02/21/24 02/21/24 02/21/24 Range/Units 13:37 13:39 13:39 RBC 2.60 L (4.30-5.90) m/uL Hgb 8.8 L (13.0-17.5) gm/dL Hct 25.8 L (39.0-53.0) % Lymphocytes # 0.7 L (1.0-4.8) k/uL Sodium 134 L (137-145) mmol/L BUN 25 H (9-20) mg/dL Glucose 139 H (74-99) mg/dL POC Glucose (mg/dL) 153 H (70-110) mg/dL Total Protein 10.5 H (6.3-8.2) g/dL Ur Specific [place] (1.001-1.035) Urine Protein (Negative) 02/21/24 Range/Units 16:28 RBC (4.30-5.90) m/uL Hgb (13.0-17.5) gm/dL Hct (39.0-53.0) % Lymphocytes # (1.0-4.8) k/uL Sodium (137-145) mmol/L BUN (9-20) mg/dL Glucose (74-99) mg/dL POC Glucose (mg/dL) (70-110) mg/dL Total Protein (6.3-8.2) g/dL Ur Specific [place] 1.049 H (1.001-1.035) Urine Protein Trace H (Negative)
[2024-02-21] MEDS: HEPARIN SODIUM,PORCINE 5,000 UNIT/ML 1 ML VIAL SQ SCH (20:21)
--- NOTE | 2024-02-22 06:49 | P.PN ---
Subjective Progress Note Date: 02/22/24 88 year old M with PMH of vitamin B12 def, vitamin D def, anemia presents to the ED. History is obtained from the nephew Olvin who is also the medical POA. Patient lives at [facility] which is an assisted living facility. He was complaining of a cough and was taken to urgent care for further evaluation. POA reports patient was sitting for approximately 10 minutes when he was suddenly disoriented. He was confused and couldn't recognize the nephew. Patient couldn't speak, and when he tried he was incoherently mumbling. He was starting around the room unable to follow commands. Symptoms have significantly improved since coming to the ED. In the ED he underwent extensive evaluation. BP 117/73, HR 64, T 97.3F, RR 18, 100% on RA. CBC, Coag panel, CMP significant for RBC 2.6, Hg 8.8, Hct 25.8, Na 134, BUN 25, glu 139. Mag 2.1. Trop < 0.012. UA neg LE or nitrite. COVID, RSV, Flu neg. Brain CT neg for acute process. CTA head no acute process, paranasal sinus disease. CXR cardiomegaly with pulmonary vascular congestion. Patient is admitted for further workup and management. 02/21 Patient was seen and examined. Patient doing well. Very hard of hearing. General: No acute distress Derm: warm, dry Head: atraumatic, normocephalic, symmetric Eyes: EOMI, no lid lag, anicteric sclera Mouth: no lip lesion, mucus membranes moist Cardiovascular: S1S2 reg, no murmur Lungs: CTA bilateral, no rhonchi, no rales , no accessory muscle use Ext: no gross muscle atrophy, no edema, no contractures Neuro: No focal neurologic deficits, CN II-XII grossly intact except diminished hearing bilaterally Psych: Alert and oriented Based on my assessment of this patient, this patient meets a high complexity level of care. Confusion, expressive aphasia: Concerns for TIA versus CVA. Follow MRI brain, Echo, A1c, Lipid panel. ASA 325 mg PO QD. Lipitor 40 mg PO QD. Neurochecks. Telemetry monitoring. Check TSH, B12, Folate. Obtain Orthostatic vitals. Neurology consult. PT/OT/ST consulted. 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 Obtain iron studies. 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 Vitamin B12 def: Cyanocobalamin 500 mcg PO QD. Vitamin D def: Vit D2 1250 mcg PO QMo. Discharge pending workup. CODE STATUS: NO CODE DVT Prophylaxis: Heparin SQ GI Prophylaxis: Designated medical POA if patient is not able to make medical decisions for themselves: Olvin, nephew and medical POA I have reviewed the following senior recruitment consultant notes: I have reviewed the results of the following tests: I have ordered the following tests: Pending: Echo, MRI brain, A1c, Lipid panel, B12, Folate, TSH, Iron studies. I have discussed the care of this patient with the following independent historian: I have independently interpreted the following test below: I have discussed the management of this patient with the following physician: Objective - Vital Signs Vital signs: Vital Signs Temp 97.4 F L 02/22/24 04:00 Pulse 70 02/22/24 04:00 Resp 15 02/22/24 04:00 BP 98/53 02/22/24 04:00 Pulse Ox 96 02/22/24 04:00 FiO2 Intake & Output 02/21/24 02/21/24 02/22/24 06:59 18:59 06:59 Intake Total 120 Output Total 300 Balance -180 Weight 73.028 kg 73.028 kg Intake: Oral 120 Output: Urine 300 Other: Voiding Method Toilet # Voids 1 - Labs CBC & Chem 7: 02/21/24 13:39 02/21/24 13:39 Labs: Abnormal Lab Results - Last 24 Hours (Table) 02/21/24 02/21/24 02/21/24 Range/Units 13:37 13:39 13:39 RBC 2.60 L (4.30-5.90) m/uL Hgb 8.8 L (13.0-17.5) gm/dL Hct 25.8 L (39.0-53.0) % Lymphocytes # 0.7 L (1.0-4.8) k/uL Sodium 134 L (137-145) mmol/L BUN 25 H (9-20) mg/dL Glucose 139 H (74-99) mg/dL POC Glucose (mg/dL) 153 H (70-110) mg/dL Total Protein 10.5 H (6.3-8.2) g/dL Ur Specific [place] (1.001-1.035) Urine Protein (Negative) 02/21/24 Range/Units 16:28 RBC (4.30-5.90) m/uL Hgb (13.0-17.5) gm/dL Hct (39.0-53.0) % Lymphocytes # (1.0-4.8) k/uL Sodium (137-145) mmol/L BUN (9-20) mg/dL Glucose (74-99) mg/dL POC Glucose (mg/dL) (70-110) mg/dL Total Protein (6.3-8.2) g/dL Ur Specific [place] 1.049 H (1.001-1.035) Urine Protein Trace H (Negative)
[2024-02-22 07:42] LABS: T4, Free (Free Thyroxine) 0.87 ng/dL (0.78-2.19)
[2024-02-22 09:05] LABS: Chol/HDL Ratio 1.79 Ratio; LDL Cholesterol,Calculated 22.1 mg/dL (0.0-131.0); VLDL Calculation 7.88 mg/dL (5.00-40.00)
[2024-02-22 09:24] VITALS: RESP 16
[2024-02-22] MEDS: MULTIVITAMINS, THERA 1 EACH TAB PO SCH (09:25)
[2024-02-22] MEDS: ASPIRIN 325 MG TAB PO SCH (09:25)
[2024-02-22] MEDS: CYANOCOBALAMIN 500 MCG TAB PO SCH (09:25)
[2024-02-22] MEDS: ERGOCALCIFEROL 1,250 MCG (50,000 IU) CAPSULE PO SCH (09:25)
[2024-02-22] MEDS: FERROUS SULFATE 325 MG TAB PO SCH (09:26)
[2024-02-22 11:47] LABS: % Iron Saturation 27.55 (15.00-50.00); Iron 54 UG/DL (65-175); Total Iron Binding Capacity 196 UG/DL (228-460)
--- NOTE | 2024-02-22 14:04 | MR ---
EXAMINATION TYPE: MR brain wo con DATE OF EXAM: 02/22/2024 1:51 PM COMPARISON: 02/21/2024 CLINICAL INDICATION: Male, 88 years old with history of CVA; TECHNIQUE: Multi planar, multi sequence imaging was performed through the brain including: T1, T2, In version recovery, Diffusion weighted imaging, and gradient echo imaging. No gadolinium was given. FINDINGS: Mild cerebral atrophy with proportional dilation of ventricular system. Scattered foci of high T2 s ignal intensity are seen within the periventricular white matter. Midline structures show no abnormal ity. Diffusion-weighted imaging shows no evidence of restricted diffusion. The susceptibility weighte d images do not reveal any evidence for micro-hemorrhage. The bone marrow signal is within normal limits. Paranasal sinuses and mastoid air cells: Moderate scattered paranasal sinus disease. Visualized orbits: Orbital contents are intact. Right superficial parotid gland 22 mm lesion. It extends into the deep parotid gland. This is high T2 low T1 signal. IMPRESSION: 1. No evidence of intracranial mass or acute/subacute infarct. 2. Nonspecific white matter changes, likely secondary to small vessel ischemic disease. 3. Right parotid gland lesion seen dating back to at least 02/06/2023 possibly representing a cyst. Co rrelate with ultrasound. 4. Moderate paranasal sinus disease. [facility], , 02/22/2024 2:02 PM
[2024-02-22 16:40] VITALS: BP 118/69; PULSE 62; TEMP 98.1
--- NOTE | 2024-02-22 16:51 | P.CNNES ---
History of Present Illness Consult date: 02/22/24 Requesting physician: Neil Yuan Reason for Consult: cva r/o History of Present Illness: This is an 88-year-old gentleman with severe hearing loss, who presented emergency department because of confusion and not verbalizing. History is obtained from the patient nephew is at bedside. According to the nephew patient was in his assisted living facility and he was coughing and family was notified that he needs to be evaluated. He was taken to urgent care for further evaluation and there while sitting for approximately 10 minutes recently was confused and according to the nephew he was just gazing off and not verbalizing. He seems that he was placed off per the nephew. And he did not follow commands. The episode lasted possibly about 20 minutes. No jerking of any extremity, no foaming around the mouth, no urinary or bowel incontinence. No history of seizure. Patient does not have any focal deficits. Patient does not have any history of stroke or TIA. 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 Some of the workup during this hospital visit consisted of: Lipid panel is triglyceride 39, cholesterol 68, LDL 22 and HDL is 38 TSH is 18.50 Free T4 is 0.87 Vitamin B12 is 507 Serum folate is 25.90 Hemoglobin A1c is 6.20 I reviewed the rest of the lab workup. CT of the head is reported as no acute intracranial process. I personally reviewed the CT and I agree with the report CT angiography of the head and neck is reported as no evidence of dissection of cervical internal carotid artery or vertebral artery. No any evidence of significant stenosis at the carotid bifurcation. No evidence of intracranial high-grade stenosis or intracranial aneurysm. MRI of the brain is reported as no evidence of intracranial mass or acute/subacute infarct. Nonspecific white matter changes, likely secondary to small vessel ischemic disease. Right parotid gland lesion seen dating back to at least 01/2023 possibly representing a cyst. Correlate with ultrasound. Review of Systems As per HPI. Past Medical History Past Medical History: Cancer Additional Past Medical History / Comment(s): skin cancer History of Any Multi-Drug Resistant Organisms: None Reported Past Surgical History: Adenoidectomy, Appendectomy, Cholecystectomy, Tonsillectomy Past Anesthesia/Blood Transfusion Reactions: No Reported Reaction, Motion Sickness Additional Past Anesthesia/Blood Transfusion Reaction / Comment(s): years ago Past Psychological History: No Psychological Hx Reported Smoking Status: Never smoker Past Alcohol Use History: Rare Past Drug Use History: None Reported - Past Family History Mother Family Medical History: No Reported History Medications and Allergies Home Medications Medication Instructions Recorded Confirmed Type Cyanocobalamin (Vitamin B-12) 500 mcg PO DAILY@0800 02/21/24 02/21/24 History [Vitamin B-12] Ergocalciferol (Vitamin D2) 1,250 mcg PO MO@0800 02/21/24 02/21/24 History [Drisdol (50,000 Iu)] Ferrous Sulfate [Iron (65 MG 325 mg PO DAILY@0800 02/21/24 02/21/24 History Elemental)] Multivitamins, Thera [Multivitamin 1 tab PO DAILY@0800 02/21/24 02/21/24 History (formulary)] Aspirin 81 mg PO DAILY #30 tab 02/22/24 Rx Atorvastatin [Lipitor] 10 mg PO HS #30 tab 02/22/24 Rx Levothyroxine Sodium [Synthroid] 25 mcg PO DAILY@0630 #30 tab 02/22/24 Rx Allergies Allergy/AdvReac Type Severity Reaction Status Date / Time No Known Allergies Allergy Verified 02/21/24 15:09 Physical Examination - Vital Signs Vital Signs: Vital Signs Temp Pulse Pulse Resp BP BP Pulse Ox 02/22/24 11:30 97.8 F 77 16 90/51 97 02/22/24 08:00 98.0 F 64 16 96/55 97 02/22/24 04:00 97.4 F L 70 15 98/53 96 02/22/24 02:00 15 02/21/24 23:50 98.1 F 72 14 111/54 98 02/21/24 21:00 97.1 F L 79 19 121/65 98 02/21/24 20:45 98.4 F 69 18 110/62 95 02/21/24 20:00 77 20 112/66 93 L 02/21/24 19:00 66 18 109/65 97 02/21/24 18:07 77 20 106/82 95 Intake and Output 02/22/24 02/22/24 02/22/24 06:59 14:59 22:59 Intake Total 120 460 Output Total 300 Balance -180 460 Intake: Oral 120 460 Output: Urine 300 Other: Voiding Method Toilet # Voids 1 1 Weight 76 kg General: Sitting in a recliner chair and is not in acute distress. Neuro: Limited because of his cooperation. Patient nephew is at bedside who helps with the history. Patient refused on follow my commands followed some of his nephews command. Patient was upset that he still in the hospital and wants to go back home. He is oriented to self he correctly stated the current month and he stated he is in the hospital. He was following few simple commands to his nephew correctly such as wiggling his toes. Pupils are round about 3 mm and reactive to light. No facial weakness. No dysarthria Hearing is severely decreased bilaterally to hand rub even with hearing aids. Motor the strength is limited in assessment because of his cooperation and he refused but had spontaneous movement of upper extremity. He was crossing his legs and he wiggled his toes bilaterally. Per the nurse he walks it was physical therapy Rest is deferred because of his cooperation Results - Laboratory Findings CBC and BMP: 02/21/24 13:39 02/21/24 13:39 Abnormal Lab Findings: Abnormal Labs 02/21/24 02/21/24 02/21/24 13:37 13:39 13:39 RBC 2.60 L Hgb 8.8 L Hct 25.8 L Lymphocytes # 0.7 L Sodium 134 L BUN 25 H Glucose 139 H POC Glucose (mg/dL) 153 H Hemoglobin A1c Iron TIBC Transferrin Total Protein 10.5 H HDL Cholesterol TSH Ur Specific [place] Urine Protein 02/21/24 02/22/24 02/22/24 16:28 05:41 05:41 RBC Hgb Hct Lymphocytes # Sodium BUN Glucose POC Glucose (mg/dL) Hemoglobin A1c 6.2 H Iron TIBC Transferrin Total Protein HDL Cholesterol 38.00 L TSH Ur Specific [place] 1.049 H Urine Protein Trace H 02/22/24 05:41 RBC Hgb Hct Lymphocytes # Sodium BUN Glucose POC Glucose (mg/dL) Hemoglobin A1c Iron 54 L TIBC 196 L Transferrin 140.0 L Total Protein HDL Cholesterol TSH 18.500 H Ur Specific [place] Urine Protein Assessment and Plan Assessment: This is an 88-year-old gentleman who presents to the emergency department because of episode of confusion, he was dazed off and not following commands or verbalizing while at the urgent care. He was sent from his assisted living facility for further evaluation of cough. Transient episode of confusion, aphasia and eye gazing off: Unsure exact etiology, possible TIA versus cannot rule out seizure. 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 He was started on Lipitor 40 mg daily and can go down to 10mg qhs. 2D echo was ordered and is pending I ordered a routine EEG Continue neuro checks Cardiac monitoring. PT, OT and FLIGHT DECK OFFICER are consulted. Regarding the abnormal thyroid will defer the management to the primary team For the rest of the medical management to primary team Patient refusing to stay in the hospital for further evaluation such as EEG. The nephew was at bedside and stated that will be better for the patient to obtain EEG as an outpatient since he is very reluctant about it. In those terms since the patient is stable we will recommend outpatient EEG but if the patient continues to have any further episode of confusion staring off then recommend patient to come back to the hospital immediately for further evaluation and an EEG. Recommend patient to follow-up with a neurologist as an outpatient within to 3 weeks DVT prophylaxis the patient is on subcu heparin Plan discussed with the patient's nephew is at bedside and the primary team Thank you for the consultation. Dr. Najera will resume neurology service tomorrow if patient remains in the hospital. Time with Patient: Greater than 30
--- NOTE | 2024-02-22 16:56 | P.DS ---
Providers Date of admission: 02/22/24 07:35 Expected date of discharge: 02/22/24 Attending physician: Neil Yuan MD Consults: 02/21/24 16:03 Consult Physician Routine Consulting Provider: Wei Deras Consult Reason/Comments: CVA r/o Do you want consulting provider notified?: Yes Primary care physician: [facility] Course: 88 year old M with PMH of vitamin B12 def, vitamin D def, anemia presents to the ED. History is obtained from the nephew Olvin who is also the medical POA. Patient lives at [facility] which is an assisted living facility. He was complaining of a cough and was taken to urgent care for further evaluation. POA reports patient was sitting for approximately 10 minutes when he was suddenly disoriented. He was confused and couldn't recognize the nephew. Patient couldn't speak, and when he tried he was incoherently mumbling. He was starting around the room unable to follow commands. Symptoms have significantly improved since coming to the ED. In the ED he underwent extensive evaluation. BP 117/73, HR 64, T 97.3F, RR 18, 100% on RA. CBC, Coag panel, CMP significant for RBC 2.6, Hg 8.8, Hct 25.8, Na 134, BUN 25, glu 139. Mag 2.1. Trop < 0.012. UA neg LE or nitrite. COVID, RSV, Flu neg. Brain CT neg for acute process. CTA head no acute process, paranasal sinus disease. CXR cardiomegaly with pulmonary vascular congestion. Patient is admitted for further workup and management. 02/21 Patient was seen and examined. Patient doing well. Very hard of hearing. B12 507. Folate 25.9. TSH 18.5, FT4 0.87. Lipid panel T. Chol 68, LDL 22.1. Iron studies Fe 54, Ferritin 186, A1c 6.2. MRI brain negative infarct. Case discussed with AMBER Cadena for EEG and Echo outpatient, start ASA and Lipitor. Case discussed with POA at bedside he is agreeable to the plan. Prescription for ASA, Lipitor, Synthroid sent to pharmacy. Will need EEG and Echo outpatient. Patient and family verbalized understanding of the plan. General: No acute distress Derm: warm, dry Head: atraumatic, normocephalic, symmetric Eyes: EOMI, no lid lag, anicteric sclera Mouth: no lip lesion, mucus membranes moist Cardiovascular: S1S2 reg, no murmur Lungs: CTA bilateral, no rhonchi, no rales , no accessory muscle use Ext: no gross muscle atrophy, no edema, no contractures Neuro: No focal neurologic deficits, CN II-XII grossly intact except diminished hearing bilaterally Psych: Alert and oriented Discharge Plans: Confusion, expressive aphasia Normocytic anemia CKD stage II Vitamin B12 def Vitamin D def This complex discharge took 35 minutes to complete. Patient Condition at Discharge: Stable Plan - Discharge Summary Discharge Rx Participant: No New Discharge Prescriptions: New Atorvastatin [Lipitor] 10 mg PO HS #30 tab Levothyroxine Sodium [Synthroid] 25 mcg PO DAILY@0630 #30 tab Aspirin 81 mg PO DAILY #30 tab Continue Multivitamins, Thera [Multivitamin (formulary)] 1 tab PO DAILY@0800 Ergocalciferol (Vitamin D2) [Drisdol (50,000 Iu)] 1,250 mcg PO MO@0800 Cyanocobalamin (Vitamin B-12) [Vitamin B-12] 500 mcg PO DAILY@0800 Ferrous Sulfate [Iron (65 MG Elemental)] 325 mg PO DAILY@0800 Discharge Medication List Cyanocobalamin (Vitamin B-12) [Vitamin B-12] 500 mcg PO DAILY@0800 02/21/24 [History] Ergocalciferol (Vitamin D2) [Drisdol (50,000 Iu)] 1,250 mcg PO MO@0800 02/21/24 [History] Ferrous Sulfate [Iron (65 MG Elemental)] 325 mg PO DAILY@0800 02/21/24 [History] Multivitamins, Thera [Multivitamin (formulary)] 1 tab PO DAILY@0800 02/21/24 [History] Aspirin 81 mg PO DAILY #30 tab 02/22/24 [Rx] Atorvastatin [Lipitor] 10 mg PO HS #30 tab 02/22/24 [Rx] Levothyroxine Sodium [Synthroid] 25 mcg PO DAILY@0630 #30 tab 02/22/24 [Rx] Follow up Appointment(s)/Referral(s): Luca Benitez MD [Primary Care Provider] - 1-2 days Activity/Diet/Wound Care/Special Instructions: Return to [facility] [address] [place] [address] Repeat TSH/FT4 in 6 weeks. Obtain EEG and Echo outpatient. Discharge/Stand Alone Forms: Who Do I Call? Discharge Disposition: HOME SELF-CARE
[2024-02-23] MEDS ORDERED: LEVOTHYROXINE 25 MCG TAB PO SCH (06:30)
== END 2024-02-22 17:37 | disposition home or self-care (01) | DRG 92 ==
LOC: EC 13:01 → 3SCARD 15:56 → OBSVTOIN 02-22 07:35
PROVIDERS: ADMIT Family Medicine; ATTEND Family Medicine
DX: R47.01 Aphasia (principal); G93.40 Encephalopathy, unspecified; D63.1 Anemia in chronic kidney disease; N18.2 Chronic kidney disease, stage 2 (mild); E53.8 Deficiency of other specified B group vitamins; E55.9 Vitamin D deficiency, unspecified; Z11.52 Encounter for screening for COVID-19; H91.93 Unspecified hearing loss, bilateral; Z79.82 Long term (current) use of aspirin; Z79.890 Hormone replacement therapy; Z79.899 Other long term (current) drug therapy; Z85.828 Personal history of other malignant neoplasm of skin; Z87.2 Personal history of diseases of the skin and subcutaneous tissue; Z92.3 Personal history of irradiation; Z90.49 Acquired absence of other specified parts of digestive tract
CPT/HCPCS: 36415; 70450; 70496; 70498; 70551; 71046; 80053; 80061; 81003; 82607; 82728; 82746; 83036; 83540; 83550; 83735; 84439; 84443; 84484; 85025; 85610; 85730; 87636; 93005; 96372; 99291

== ENCOUNTER → 2024-05-31 | Outpatient (CLI) | payer MEDICARE, BC ==
[2024-05-31 18:14] LABS: African American GFR (CKD) 49 (>60 ml/min/1.73 sqM); Blood Urea Nitrogen 26 mg/dL (9-20); Non-African American GFR(CKD) 43 (>60 ml/min/1.73 sqM)
--- NOTE | 2024-05-31 19:46 | CT ---
EXAMINATION TYPE: CT soft tissue neck w con, CT brain w con DATE OF EXAM: 05/31/2024 7:12 PM COMPARISON: 02/21/2024. 02/06/2023. 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 TECHNIQUE: Standard enhanced CT of the neck. Axial sections with coronal and sagittal reformats were obtained. Contrast used:80 ml mL of Isovue 300 with IV Contrast, (None if empty) Oral contrast used: (None if empty) CT DLP: Combined 1701.1 mGycm, Automated exposure control for dose reduction was used. TECHNIQUE: Axial CT images were obtained with coronal and sagittal reformats created and reviewed. Contrast used:80 ml mL of Isovue 300 with IV Contrast, Oral contrast used: none. CT DLP: Combined 1701.1 mGycm, Automated exposure control for dose reduction was used. FINDINGS: Extra-axial spaces: No abnormal extra-axial fluid collections. Ventricular system: Dilatation in proportion to cerebral atrophy. Cerebral parenchyma: No acute intraparenchymal hemorrhage or mass effect. The bull-white junction is well differentiated. Scattered hypoattenuating areas are seen within the white matter. No abnormal e nhancement is seen after the administration of intravenous contrast. Cerebellum: Cerebellar atrophy Mass effect: No evidence of midline shift. Intracranial vasculature: unremarkable Soft tissues: Normal. Calvarium/osseous structures: No depressed skull fracture. Paranasal sinuses and mastoid air cells: Clear. Visualized orbits: Orbital contents are intact. IMPRESSION: No acute intracranial process. Sinuses: Mucosal thickening of the right maxillary sinus with retention cyst present measuring up to 20 mm. Spaces of the neck: The left anterior canal demonstrates no definitive mass. There may be mild skin t hickening present. No osseous erosion. There is extension into thee inferior parotid gland series 9 i mage series 12 image 9. The right superficial parotid glandr demonstrates a cyst measuring up to 2.0 x 1.8 cm. Musculoskeletal: No acute osseous pathology. Lymph nodes: Multiple nonenlarged lymph nodes are seen along both anterior chains of the neck. Vascular structures: Patent with atherosclerotic plaque of the internal carotid arteries at the bifur cation. Thoracic Inlet/airway: Airway is patent. The lung apices are clear. Moderate coronary artery atherosc lerosis. Soft tissues/Thyroid: Thyroid and remainder of the soft tissues are unremarkable. Other: none. IMPRESSION: 1. Mild asymmetric left internal auditory canal/skin thickening with possible extension into the par otid gland versus masslike area measuring 13 x 10 mm. Unclear if this is artifact.. Attention on foll ow-up PET/CT. 2. Right parotid gland cystic lesion measuring up to 20 mm. 3. No evidence for acute intracranial process. 4. Nonspecific white matter changes. [facility], , 05/31/2024 7:43 PM
== END | disposition home or self-care (01) ==
LOC: RADCTMAIN 17:24
PROVIDERS: ATTEND Radiology Radiation Oncology
DX: C44.329 Squamous cell carcinoma of skin of other parts of face (principal); C77.0 Secondary and unspecified malignant neoplasm of lymph nodes of head, face and neck; R23.4 Changes in skin texture; R90.82 White matter disease, unspecified; K11.8 Other diseases of salivary glands
CPT/HCPCS: 82565; 84520; 70491; 70460; 36415; Q9967